=== PATIENT | male | born 1945 | race Caucasian/White ===

== ENCOUNTER 2016-09-29 07:00 | Observation (INO) | payer BC, MEDICARE ==
[~2016-09-29] VITALS: Ht 177.8 cm; Wt 61.7 kg
[2016-09-29] VITALS (7 sets, daily range): BP systolic 113–149; BP diastolic 55–69
--- NOTE | 2016-09-29 07:05 | PHYS DOC ---
Past Medical History Past Medical History: No Pertinent History Past Surgical History: Appendectomy, Tonsillectomy Alcohol Use: Heavy Drug Use: None Adult General Chief Complaint Chief Complaint: HYPERTENSION HPI HPI Patient is a 71 year old male who presents with dizziness and hypertension. He states he checks his blood pressure about once a month since usually in the 140s last time checked was 3 weeks ago. He states in the last 3 days he's been under a lot more stress and his blood pressure this morning is 190s. He states he's been feeling dizzy when he is up trying to walk around. He denies any vertigo, weakness in his arms or legs, nausea vomiting, chest pain, shortness of breath or headache. He does have a history of COPD and uses albuterol inhaler. He does drink 3 beers daily. He continues to smoke. He denies any illicit drug use. He states he's not on any blood pressure medicines as his blood pressures are usually in the 140s systolic. Review of Systems Review of Systems Constitutional: Denies fever or chills [] Eyes: Denies change in visual acuity, redness, or eye pain [] HENT: Denies nasal congestion or sore throat [] Respiratory: Denies cough or shortness of breath [] Cardiovascular: No additional information not addressed in HPI [] GI: Denies abdominal pain, nausea, vomiting, bloody stools or diarrhea [] : Denies dysuria or hematuria [] Musculoskeletal: Denies back pain or joint pain [] Integument: Denies rash or skin lesions [] Neurologic: Denies headache, focal weakness or sensory changes [] Endocrine: Denies polyuria or polydipsia [] Current Medications Current Medications Current Medications Medications (Trade) Dose Ordered Sig/Blanquita Start Time Stop Time Status Last Admin Dose Admin Labetalol HCl (Normodyne) 20 mg PRN Q2HR PRN 09/29/16 08:00 09/29/16 08:09 20 MG Allergies Allergies Allergies Coded Allergies Type Severity Reaction Last Updated Verified Penicillins Allergy Unknown Hives 07/13/13 Yes Physical Exam Physical Exam Constitutional: Well developed, well nourished, no acute distress, non-toxic appearance. [] HENT: Normocephalic, atraumatic, bilateral external ears normal, oropharynx moist, no oral exudates, nose normal. [] Eyes: PERRLA, EOMI, conjunctiva normal, no discharge. [] Neck: Normal range of motion, no tenderness, supple, no stridor. [] Cardiovascular:Heart rate regular rhythm, no murmur [] Lungs & Thorax: Bilateral breath sounds clear to auscultation [] Abdomen: Bowel sounds normal, soft, no tenderness, no masses, no pulsatile masses. [] Skin: Warm, dry, no erythema, no rash. [] Back: No tenderness, no CVA tenderness. [] Extremities: No tenderness, no cyanosis, no clubbing, ROM intact, no edema. [] Neurologic: Alert and oriented X 3, normal motor function, normal sensory function, no focal deficits noted. [] Psychologic: Affect normal, judgement normal, mood normal. [] Current Patient Data Vital Signs Vital Signs Date Time Temp Pulse Resp B/P (MAP) Pulse Ox O2 Delivery O2 Flow Rate FiO2 09/29/16 08:24 68 20 171/90 (117) 96 Room Air 09/29/16 07:21 97.6 97.6 Lab Values Laboratory Tests Test 09/29/16 07:38 09/29/16 07:50 White Blood Count 6.2 x10^3/uL (4.0-11.0) Red Blood Count 4.24 x10^6/uL (4.30-5.70) L Hemoglobin 14.4 g/dL (13.0-17.5) Hematocrit 42.1 % (39.0-53.0) Mean Corpuscular Volume 99 fL (79-100) Mean Corpuscular Hemoglobin 34 pg (25-35) Mean Corpuscular Hemoglobin Concent 34 g/dL (31-37) Red Cell Distribution Width 13.4 % (11.5-14.5) Platelet Count 226 x10^3/uL (140-400) Neutrophils (%) (Auto) 67 % (31-73) Lymphocytes (%) (Auto) 19 % (24-48) L Monocytes (%) (Auto) 11 % (0-9) H Eosinophils (%) (Auto) 2 % (0-3) Basophils (%) (Auto) 1 % (0-3) Neutrophils # (Auto) 4.2 x10^3uL (1.8-7.7) Lymphocytes # (Auto) 1.2 x10^3/uL (1.0-4.8) Monocytes # (Auto) 0.7 x10^3/uL (0.0-1.1) Eosinophils # (Auto) 0.1 x10^3/uL (0.0-0.7) Basophils # (Auto) 0.1 x10^3/uL (0.0-0.2) Prothrombin Time 11.8 SEC (11.7-14.0) Prothrombin Time INR 0.9 (0.8-1.1) Sodium Level 142 mmol/L (136-145) Potassium Level 3.8 mmol/L (3.5-5.1) Chloride Level 104 mmol/L (98-107) Carbon Dioxide Level 30 mmol/L (21-32) Anion Gap 8 (6-14) Blood Urea Nitrogen 18 mg/dL (8-26) Creatinine 0.9 mg/dL (0.7-1.3) Estimated GFR (Cockcroft-Gault) 82.9 Glucose Level 100 mg/dL (70-99) H Calcium Level 8.1 mg/dL (8.5-10.1) L Magnesium Level 2.2 mg/dL (1.8-2.4) Total Bilirubin 1.0 mg/dL (0.2-1.0) Direct Bilirubin 0.3 mg/dL (0.0-0.2) H Aspartate Amino Transferase (AST) 29 U/L (15-37) Alanine Aminotransferase (ALT) 19 U/L (16-63) Alkaline Phosphatase 46 U/L (46-116) Creatine Kinase 148 U/L (39-308) Creatine Kinase MB (Mass) 1.2 ng/mL (0.0-3.6) Creatine Kinase MB Relative Index 0.8 % (0-4) Troponin I Quantitative < 0.017 ng/mL (0.000-0.055) NA-Drh-F-Type Natriuretic Peptide 335 pg/mL (0-124) H Total Protein 6.8 g/dL (6.4-8.2) Albumin 3.7 g/dL (3.4-5.0) Thyroid Stimulating Hormone (TSH) 4.829 uIU/mL (0.358-3.74) H Urine Collection Type Unknown Urine Color Yellow Urine Clarity Clear Urine pH 6.5 Urine Specific [place] 1.020 Urine Protein 100 mg/dL (NEG-TRACE) Urine Glucose (UA) Negative mg/dL (NEG) Urine Ketones (Stick) Trace mg/dL (NEG) Urine Blood Small (NEG) Urine Nitrite Negative (NEG) Urine Bilirubin Negative (NEG) Urine Urobilinogen Dipstick 1.0 mg/dL (0.2 mg/dL) Urine Leukocyte Esterase Negative (NEG) Urine RBC 3-5 /HPF (0-2) Urine WBC 0 /HPF (0-4) Urine Squamous Epithelial Cells Few /LPF Urine Bacteria 0 /HPF (0-FEW) Urine Mucus Mod /LPF Urine Opiates Screen Neg (NEG) Urine Methadone Screen Neg (NEG) Urine Barbiturates Neg (NEG) Urine Phencyclidine Screen Neg (NEG) Urine Amphetamine/Methamphetamine Neg (NEG) Urine Benzodiazepines Screen Neg (NEG) Urine Cocaine Screen Neg (NEG) Urine Cannabinoids Screen Neg (NEG) Urine Ethyl Alcohol Neg (NEG) Laboratory Tests 09/29/16 07:38 Laboratory Tests 09/29/16 07:38 EKG EKG EKG shows sinus rhythm with rate of [address] elevations, T-wave inversions noted in aVL, normal axis, QTC 440 ms, as interpreted by me. Radiology/Procedures Radiology/Procedures [address] [id number] IMAGING REPORT Signed PATIENT: ANDREINA FINE ACCOUNT: [id number] : 1945 LOCATION: ER AGE: 71 SEX: M EXAM STATUS: REG ER ORD. PHYSICIAN: CASSIDY ORTIZ MD REASON: htn PROCEDURE: PORTABLE CHEST 1V Indication hypertension. Dizziness. Protocol study. A single view of the chest was obtained and is compared to an examination 05/14/2013. Chronic background changes compatible with emphysema and/or fibrosis are noted. The heart and pulmonary vessels appear normal. There is no acute parenchymal infiltrate. Significant pleural fluid is not seen. There is no pneumothorax. IMPRESSION: No acute or focal process. No significant change DICTATED and SIGNED BY: WILLIAM VALENCIA MD DATE: 09/29/16 0759 CC: CASSIDY ORTIZ MD; EDGARD PARRY MD ~ [place] [id number] IMAGING REPORT Signed PATIENT: ANDREINA FINE ACCOUNT: [id number] : 1945 LOCATION: ER AGE: 71 SEX: M EXAM STATUS: REG ER ORD. PHYSICIAN: CASSIDY ORTIZ MD REASON: dizziness PROCEDURE: CT HEAD WO CONTRAST Indication dizziness. Hypertension. Noncontrast images of the head were obtained. Note is made of a previous examination 12/27/2012. The calvarium appears unremarkable. The visualized paranasal sinuses appear normal. There is no subdural or epidural hematoma. There is no mass or midline shift. No hemorrhage is seen. No acute finding is apparent. IMPRESSION: No acute finding seen in the head PQRS Compliance Statement: One or more of the following individualized dose reduction techniques were utilized for this examination: 1. Automated exposure control 2. Adjustment of the mA and/or kV according to patient size 3. Use of iterative reconstruction technique DICTATED and SIGNED BY: WILLIAM VALENCIA MD DATE: 09/29/16 0753 CC: CASSIDY ORTIZ MD; EDGARD PARRY MD ~ Impressions: Accelerated hypertension COPD Lung nodule Course & Med Decision Making Course & Med Decision Making Pertinent Labs and Imaging studies reviewed. (See chart for details) He presents with some complaints of dizziness and elevated blood pressure over [address] head, chest x-ray, EKG nonacute. Labs are also nonacute. He received 20 IV labetalol and now his blood pressures in the 170 range. He is being admitted to in stable condition going to med telemetry. He and his 2 sons are agreeable to the plan he is in stable condition at this time with interim orders written. Dragon Disclaimer Dragon Disclaimer This electronic medical record was generated, in whole or in part, using a voice recognition dictation system. Departure Departure Impression: Primary Impression: Hypertensive urgency Disposition: ADMITTED INPATIENT Admitting Physician: Lesia Hair Condition: STABLE Referrals: EDGARD PARRY MD (PCP) CASSIDY ORTIZ MD Sep 29, 2016 07:05
[2016-09-29 07:48] LABS: BASO # 0.1 x10^3/uL (0.0-0.2); BASO % 1 % (0-3); EOS % 2 % (0-3); HEMATOCRIT 42.1 % (39.0-53.0); HEMOGLOBIN 14.4 g/dL (13.0-17.5); LYMPH # 1.2 x10^3/uL (1.0-4.8); LYMPH % 19 % (24-48); MEAN CORPUSCULAR HEMOGLOBIN 34 pg (25-35); MEAN CORPUSCULAR HGB CONC 34 g/dL (31-37); MEAN CORPUSCULAR VOLUME 99 fL (79-100); MONO % 11 % (0-9); NEUT % 67 % (31-73); PLATELET COUNT 226 x10^3/uL (140-400); RED BLOOD COUNT 4.24 x10^6/uL (4.30-5.70); RED CELL DISTRIBUTION WIDTH 13.4 % (11.5-14.5); WHITE BLOOD COUNT 6.2 x10^3/uL (4.0-11.0)
--- NOTE | 2016-09-29 07:48 | EKG ---
[facility] [address] [place] [address] Test Date: 2016-09-29 Test Time: 07:19:01 Pat Name: ANDREINA FINE Department: Room: Gender: M Software Quality Engineer: : 1945 Requested By: CASSIDY ORTIZ Order Number: [id number] Reading MD: Measurements Intervals [place] Rate: 81 P: 90 SC: 158 QRS: 55 QRSD: 88 T: 71 QT: 378 QTc: 440 Interpretive Statements SINUS RHYTHM QRS(T) CONTOUR ABNORMALITY CANNOT RULE OUT ANTEROSEPTAL MYOCARDIAL DAMAGE RI6.01 Unconfirmed report No previous ECG available for comparison
--- NOTE | 2016-09-29 07:59 | RAD ---
Indication dizziness. Hypertension. Noncontrast images of the head were obtained. Note is made of a previous examination 12/27/2012. The calvarium appears unremarkable. The visualized paranasal sinuses appear normal. There is no subdural or epidural hematoma. There is no mass or midline shift. No hemorrhage is seen. No acute finding is apparent. IMPRESSION: No acute finding seen in the head PQRS Compliance Statement: One or more of the following individualized dose reduction techniques were utilized for this examination: 1. Automated exposure control 2. Adjustment of the mA and/or kV according to patient size 3. Use of iterative reconstruction technique
[2016-09-29 08:00] LABS: CALCIUM 8.1 mg/dL (8.5-10.1); CREATININE 0.9 mg/dL (0.7-1.3); GFR 82.9; POTASSIUM 3.8 mmol/L (3.5-5.1)
[2016-09-29] MEDS ORDERED: LABETALOL 20 MG/4 ML DISP.SYRIN. IVP PRN (08:00)
[2016-09-29 08:02] LABS: INR 0.9 (0.8-1.1); PROTHROMBIN TIME PATIENT 11.8 SEC (11.7-14.0)
--- NOTE | 2016-09-29 08:03 | RAD ---
Indication hypertension. Dizziness. Protocol study. A single view of the chest was obtained and is compared to an examination 05/14/2013. Chronic background changes compatible with emphysema and/or fibrosis are noted. The heart and pulmonary vessels appear normal. There is no acute parenchymal infiltrate. Significant pleural fluid is not seen. There is no pneumothorax. IMPRESSION: No acute or focal process. No significant change
[2016-09-29 08:06] LABS: ALBUMIN 3.7 g/dL (3.4-5.0); DIRECT BILIRUBIN 0.3 mg/dL (0.0-0.2); MAGNESIUM 2.2 mg/dL (1.8-2.4); TOTAL PROTEIN 6.8 g/dL (6.4-8.2)
[2016-09-29 08:07] LABS: BILIRUBIN,URINE NEGATIVE (NEG); GLUCOSE,URINE NEGATIVE (NEG); NITRITE,URINE NEGATIVE (NEG); PH,URINE 6.5; PROTEIN,URINE 100 mg/dL (NEG-TRACE)
[2016-09-29 08:11] LABS: CKMB MASS 1.2 ng/mL (0.0-3.6)
[2016-09-29 08:16] LABS: BACTERIA,URINE 0 /HPF (0-FEW); SQUAMOUS EPITHELIAL CELL,UR FEW /LPF; WBC,URINE 0 /HPF (0-4)
[2016-09-29 08:18] LABS: BARBITURATES NEG (NEG); BENZODIAZEPINES NEG (NEG); CANNABINOIDS NEG (NEG); COCAINE NEG (NEG); METHADONE NEG (NEG); OPIATES NEG (NEG); PHENCYCLIDINE NEG (NEG)
[2016-09-29] MEDS ORDERED: ONDANSETRON PF 4 MG/2 ML VIAL. IV PRN ×2 (09:00→14:15)
[2016-09-29] MEDS: NICOTINE 21MG PATCH. TD SCH (12:26)
[2016-09-29] MEDS ORDERED: hydrALAZINE 20 MG/ML VIAL. IVP PRN (14:15)
[2016-09-29] MEDS ORDERED: ALBUTEROL SULFATE 2.5 MG/3 ML NEBU. NEB PRN (14:15)
[2016-09-29] MEDS ORDERED: DOCUSATE SODIUM 100 MG CAPSULE. PO PRN (14:15)
[2016-09-29] MEDS ORDERED: MORPHINE SULFATE 2 MG/ML DISP.SYRIN. IV PRN (14:15)
[2016-09-29] MEDS ORDERED: ACETAMINOPHEN 325 MG TABLET. PO PRN (14:15)
[2016-09-29] MEDS ORDERED: traMADol 50 MG TABLET PO PRN (14:15)
--- NOTE | 2016-09-29 14:20 | PDOC1 ---
History and Physical Date of Admission Date of Admission 09/29/16 Identification/Chief Complaint Chief Complaint syncope, HTN Problems: Source Source: Chart review, Patient History of Present Illness History of Present Illness HPI HPI Patient is a 71 year old male who presents with dizziness and hypertension. Pt was never diagnosed with HTN and not taking any meds for HTN. HE still works as mechanical worker. He came back home yesterday, from hot to cold environment altho he said not staying outside for too long, he got a syncope at home, 1sec, not hit his head or hurt anywhere else. He checked his BP, was 140s. He denies any chest pain, dizzy or sob at that time. Today, he was going to work,felt light headed, sat down, then BP was 211/110 as per . then came to ER. Denies fever, chills, sob, cough. feels good now. ER BP 180s, got labetolol. said he was acting funny, but pt denies, said lots of stress recently. smoker, drinker, no alcohol withdraw history. Past Medical History Pulmonary: COPD Past Surgical History Past Surgical History: Appendectomy, Tonsillectomy Family History Family History: Hypertension Social History Smoke: 1 pack per day ALCOHOL: heavy (6 beers daily) Drugs: None Current Medications Current Medications Current Medications Medications (Trade) Dose Ordered Sig/Blanquita Start Time Stop Time Status Last Admin Dose Admin Labetalol HCl (Normodyne) 20 mg PRN Q2HR PRN 09/29/16 08:00 09/29/16 08:09 20 MG Nicotine (Nicoderm Cq 21mg) 1 patch DAILY 09/29/16 12:08 09/29/16 12:26 1 PATCH Ondansetron HCl (Zofran) 4 mg PRN Q8HRS PRN 09/29/16 09:00 09/30/16 08:59 Allergies Allergies Allergies Coded Allergies Type Severity Reaction Last Updated Verified Penicillins Allergy Unknown Hives 07/13/13 Yes ROS Review of System CONSTITUTIONAL: No fever or chills EYES: No recent changes SKIN: No rash or itching CARDIOVASCULAR: No chest pain, syncope, palpitations, or edema RESPIRATORY: No SOB or cough GASTROINTESTINAL: No nausea, vomiting or abdominal pain NEUROLOGICAL: No headaches or weakness ENDOCRINE: No cold or heat intolerance GENITOURINARY: No urgency or frequency of urination MUSCULOSKELETAL: No back pain or joint pain LYMPHATICS: No enlarged lymph nodes PSYCHIATRIC: No anxiety or depression Physical Exam Physical Exam GEN.: No apparent distress. Alert and oriented. HEENT: Head is normocephalic, atraumatic NECK: Supple. LUNGS: bl severe decreased bs HEART: RRR, S1, S2 present. Peripheral pulses intact ABDOMEN: Soft, nontender. Positive bowel sounds. EXTREMITIES: Without any cyanosis. NEUROLOGIC: Normal speech, normal tone PSYCHIATRIC: Normal affect, normal mood. SKIN: No ulcerations Vitals Vitals Vital Signs Date Time Temp Pulse Resp B/P (MAP) Pulse Ox O2 Delivery O2 Flow Rate FiO2 09/29/16 11:17 Room Air 09/29/16 10:45 97.9 74 18 141/67 (91) 97 97.9 Labs Labs Laboratory Tests Test 09/29/16 07:38 09/29/16 07:50 White Blood Count 6.2 x10^3/uL (4.0-11.0) Red Blood Count 4.24 x10^6/uL (4.30-5.70) Hemoglobin 14.4 g/dL (13.0-17.5) Hematocrit 42.1 % (39.0-53.0) Mean Corpuscular Volume 99 fL (79-100) Mean Corpuscular Hemoglobin 34 pg (25-35) Mean Corpuscular Hemoglobin Concent 34 g/dL (31-37) Red Cell Distribution Width 13.4 % (11.5-14.5) Platelet Count 226 x10^3/uL (140-400) Neutrophils (%) (Auto) 67 % (31-73) Lymphocytes (%) (Auto) 19 % (24-48) Monocytes (%) (Auto) 11 % (0-9) Eosinophils (%) (Auto) 2 % (0-3) Basophils (%) (Auto) 1 % (0-3) Neutrophils # (Auto) 4.2 x10^3uL (1.8-7.7) Lymphocytes # (Auto) 1.2 x10^3/uL (1.0-4.8) Monocytes # (Auto) 0.7 x10^3/uL (0.0-1.1) Eosinophils # (Auto) 0.1 x10^3/uL (0.0-0.7) Basophils # (Auto) 0.1 x10^3/uL (0.0-0.2) Prothrombin Time 11.8 SEC (11.7-14.0) Prothromb Time International Ratio 0.9 (0.8-1.1) Sodium Level 142 mmol/L (136-145) Potassium Level 3.8 mmol/L (3.5-5.1) Chloride Level 104 mmol/L (98-107) Carbon Dioxide Level 30 mmol/L (21-32) Anion Gap 8 (6-14) Blood Urea Nitrogen 18 mg/dL (8-26) Creatinine 0.9 mg/dL (0.7-1.3) Estimated GFR (Cockcroft-Gault) 82.9 Glucose Level 100 mg/dL (70-99) Calcium Level 8.1 mg/dL (8.5-10.1) Magnesium Level 2.2 mg/dL (1.8-2.4) Total Bilirubin 1.0 mg/dL (0.2-1.0) Direct Bilirubin 0.3 mg/dL (0.0-0.2) Aspartate Amino Transf (AST/SGOT) 29 U/L (15-37) Alanine Aminotransferase (ALT/SGPT) 19 U/L (16-63) Alkaline Phosphatase 46 U/L (46-116) Creatine Kinase 148 U/L (39-308) Creatine Kinase MB (Mass) 1.2 ng/mL (0.0-3.6) Creatine Kinase MB Relative Index 0.8 % (0-4) Troponin I Quantitative < 0.017 ng/mL (0.000-0.055) CZ-Uug-X-Type Natriuretic Peptide 335 pg/mL (0-124) Total Protein 6.8 g/dL (6.4-8.2) Albumin 3.7 g/dL (3.4-5.0) Thyroid Stimulating Hormone (TSH) 4.829 uIU/mL (0.358-3.74) Urine Collection Type Unknown Urine Color Yellow Urine Clarity Clear Urine pH 6.5 Urine Specific [place] 1.020 Urine Protein 100 mg/dL (NEG-TRACE) Urine Glucose (UA) Negative mg/dL (NEG) Urine Ketones (Stick) Trace mg/dL (NEG) Urine Blood Small (NEG) Urine Nitrite Negative (NEG) Urine Bilirubin Negative (NEG) Urine Urobilinogen Dipstick 1.0 mg/dL (0.2 mg/dL) Urine Leukocyte Esterase Negative (NEG) Urine RBC 3-5 /HPF (0-2) Urine WBC 0 /HPF (0-4) Urine Squamous Epithelial Cells Few /LPF Urine Bacteria 0 /HPF (0-FEW) Urine Mucus Mod /LPF Urine Opiates Screen Neg (NEG) Urine Methadone Screen Neg (NEG) Urine Barbiturates Neg (NEG) Urine Phencyclidine Screen Neg (NEG) Urine Amphetamine/Methamphetamine Neg (NEG) Urine Benzodiazepines Screen Neg (NEG) Urine Cocaine Screen Neg (NEG) Urine Cannabinoids Screen Neg (NEG) Urine Ethyl Alcohol Neg (NEG) Laboratory Tests Test 09/29/16 07:38 09/29/16 07:50 White Blood Count 6.2 x10^3/uL (4.0-11.0) Red Blood Count 4.24 x10^6/uL (4.30-5.70) Hemoglobin 14.4 g/dL (13.0-17.5) Hematocrit 42.1 % (39.0-53.0) Mean Corpuscular Volume 99 fL (79-100) Mean Corpuscular Hemoglobin 34 pg (25-35) Mean Corpuscular Hemoglobin Concent 34 g/dL (31-37) Red Cell Distribution Width 13.4 % (11.5-14.5) Platelet Count 226 x10^3/uL (140-400) Neutrophils (%) (Auto) 67 % (31-73) Lymphocytes (%) (Auto) 19 % (24-48) Monocytes (%) (Auto) 11 % (0-9) Eosinophils (%) (Auto) 2 % (0-3) Basophils (%) (Auto) 1 % (0-3) Neutrophils # (Auto) 4.2 x10^3uL (1.8-7.7) Lymphocytes # (Auto) 1.2 x10^3/uL (1.0-4.8) Monocytes # (Auto) 0.7 x10^3/uL (0.0-1.1) Eosinophils # (Auto) 0.1 x10^3/uL (0.0-0.7) Basophils # (Auto) 0.1 x10^3/uL (0.0-0.2) Prothrombin Time 11.8 SEC (11.7-14.0) Prothromb Time International Ratio 0.9 (0.8-1.1) Sodium Level 142 mmol/L (136-145) Potassium Level 3.8 mmol/L (3.5-5.1) Chloride Level 104 mmol/L (98-107) Carbon Dioxide Level 30 mmol/L (21-32) Anion Gap 8 (6-14) Blood Urea Nitrogen 18 mg/dL (8-26) Creatinine 0.9 mg/dL (0.7-1.3) Estimated GFR (Cockcroft-Gault) 82.9 Glucose Level 100 mg/dL (70-99) Calcium Level 8.1 mg/dL (8.5-10.1) Magnesium Level 2.2 mg/dL (1.8-2.4) Total Bilirubin 1.0 mg/dL (0.2-1.0) Direct Bilirubin 0.3 mg/dL (0.0-0.2) Aspartate Amino Transf (AST/SGOT) 29 U/L (15-37) Alanine Aminotransferase (ALT/SGPT) 19 U/L (16-63) Alkaline Phosphatase 46 U/L (46-116) Creatine Kinase 148 U/L (39-308) Creatine Kinase MB (Mass) 1.2 ng/mL (0.0-3.6) Creatine Kinase MB Relative Index 0.8 % (0-4) Troponin I Quantitative < 0.017 ng/mL (0.000-0.055) SZ-Plu-U-Type Natriuretic Peptide 335 pg/mL (0-124) Total Protein 6.8 g/dL (6.4-8.2) Albumin 3.7 g/dL (3.4-5.0) Thyroid Stimulating Hormone (TSH) 4.829 uIU/mL (0.358-3.74) Urine Collection Type Unknown Urine Color Yellow Urine Clarity Clear Urine pH 6.5 Urine Specific [place] 1.020 Urine Protein 100 mg/dL (NEG-TRACE) Urine Glucose (UA) Negative mg/dL (NEG) Urine Ketones (Stick) Trace mg/dL (NEG) Urine Blood Small (NEG) Urine Nitrite Negative (NEG) Urine Bilirubin Negative (NEG) Urine Urobilinogen Dipstick 1.0 mg/dL (0.2 mg/dL) Urine Leukocyte Esterase Negative (NEG) Urine RBC 3-5 /HPF (0-2) Urine WBC 0 /HPF (0-4) Urine Squamous Epithelial Cells Few /LPF Urine Bacteria 0 /HPF (0-FEW) Urine Mucus Mod /LPF Urine Opiates Screen Neg (NEG) Urine Methadone Screen Neg (NEG) Urine Barbiturates Neg (NEG) Urine Phencyclidine Screen Neg (NEG) Urine Amphetamine/Methamphetamine Neg (NEG) Urine Benzodiazepines Screen Neg (NEG) Urine Cocaine Screen Neg (NEG) Urine Cannabinoids Screen Neg (NEG) Urine Ethyl Alcohol Neg (NEG) VTE Prophylaxis Ordered VTE Prophylaxis Devices: Yes VTE Pharmacological Prophylaxi: Yes Assessment/Plan Assessment/Plan lightheaded, with HTN urgency syncope, could be vasovagal new HTN copd tobaccoism alcoholism plan: add lisinopril, hydralazine prn dr. [place] consult echo t4 check orthostatic BP ativan prn dvt ppx duoneb, nicotine patch ROWENA SAENZ MD Sep 29, 2016 14:20
[2016-09-29] MEDS: LISINOPRIL 20 MG TABLET PO SCH (15:00)
[2016-09-29] MEDS ORDERED: ENOXAPARIN 40 MG/0.4 ML SYRINGE. SQ SCH (15:00)
[2016-09-29] MEDS ORDERED: IPRATRPIUM/ALBUTEROL 0.5/2.5MG 3 ML NEBU. NEB SCH ×2 (16:00)
--- NOTE | 2016-09-29 17:49 | CARD ---
APPROVED REPORT EXAM: Two-dimensional and M-mode echocardiogram with Doppler and color Doppler. Other Information Quality : Good INDICATION Hypertension/HCVD 2D DIMENSIONS RVDd2.5 (2.9-3.5cm)Left Atrium(2D)3.3 (1.6-4.0cm) IVSd1.1 (0.7-1.1cm)Aortic Root(2D)3.2 (2.0-3.7cm) LVDd3.9 (3.9-5.9cm)LVOT Diameter2.0 (1.8-2.4cm) PWd1.1 (0.7-1.1cm)LVDs2.5 (2.5-4.0cm) FS (%) 30.0 %SV44.5 ml LVEF(%)60.0 (>50%) Aortic Valve AoV Peak Mikey.110.0cm/sAoV VTI23.6cm AO Peak GR.4.8mmHgLVOT Peak Mikey.93.3cm/s AO Mean GR.2mmHgAVA (VMAX)2.59cm2 JASON (VTI)2.80cm2 Mitral Valve MV E Auupyztx987.1cm/sMV DECEL AUBQ304vf MV A Ruymhgnx538.1cm/sE/A Ratio0.8 Tricuspid Valve TR P. Jolsxpjh021fv/sRAP BMPRVZTB2ofZl TR Peak Gr.10lkTfMEVS80nfLi Pulmonary Vein S1 Mxduggrr80.0cm/sD2 Keckbzoc22.0cm/s PVa [id number] LEFT VENTRICLE The left ventricle is normal size. There is normal left ventricular wall thickness. The left ventricu lar systolic function is normal and the ejection fraction is within normal range. The Ejection Fracti on is 60%. There is normal LV segmental wall motion. Transmitral Doppler flow pattern is Grade I-abno rmal relaxation pattern. RIGHT VENTRICLE The right ventricle is normal size. The right ventricular systolic function is normal. ATRIA The left atrium size is normal. The right atrium size is normal. The interatrial septum is intact wit h no evidence for an atrial septal defect or patent foramen ovale as noted on 2-D or Doppler imaging. AORTIC VALVE The aortic valve is calcified but opens well. Doppler and Color Flow revealed no significant aortic r egurgitation. There is no significant aortic valvular stenosis. MITRAL VALVE The mitral valve is calcified but opens well. Mitral annular calcification is mild. There is no evide nce of mitral valve prolapse. There is no mitral valve stenosis. Doppler and Color Flow revealed no m itral valve regurgitation noted. TRICUSPID VALVE The tricuspid valve is normal in structure Doppler and Color Flow revealed physiological tricuspid re gurgitation. There is mild pulmonary hypertension. The PA pressure was estimated at 33 mmHg. There is no tricuspid valve stenosis. PULMONIC VALVE The pulmonary valve is normal in structure and function. Doppler and Color Flow revealed no pulmonic valvular regurgitation. There is no pulmonic valvular stenosis. GREAT VESSELS The aortic root is normal in size. The ascending aorta is normal in size. The IVC is normal in size a nd collapses >50% with inspiration. PERICARDIAL EFFUSION There is no evidence of significant pericardial effusion. Critical Notification Critical Value: No <Conclusion> The left ventricular systolic function is normal and the ejection fraction is within normal range. The Ejection Fraction is 60%. Transmitral Doppler flow pattern is Grade I-abnormal relaxation pattern. The left atrium size is normal. The right atrium size is normal. The aortic valve is calcified but opens well. The mitral valve is calcified but opens well. Mitral annular calcification is mild. Doppler and Color Flow revealed physiological tricuspid regurgitation. There is mild pulmonary hypertension. The PA pressure was estimated at 33 mmHg. The pulmonary valve is normal in structure and function. There is no evidence of significant pericardial effusion.
[2016-09-30 03:00] VITALS: BP 156/85
--- NOTE | 2016-09-30 04:19 | ACF ---
Admission Forms Criteria HYPERTENSION Clinical Indications for Admission to Inpatient Care ( Place "X" for any and all applicable criteria): Admission is indicated for 1 or more of the following(1)(2)(3)(4)(5)(6)(7)(8)(9) (10): [ ]I. Hypertensive emergency, with evidence of acute and progressing target organ disease as indicated by 1 or more of the following: [ ]a) Hypertensive encephalopathy (eg, confusion, altered mental status) [ ]b) Cerebral infarction [ ]c) Intracranial hemorrhage [ ]d) Myocardial ischemia or infarction [ ]e) Heart failure (eg. Pulmonary edema) [ ]f) Aortic dissection [ ]g) Increased creatinine (new) with reduction of more than 50% in estimated glomerular filtration rate from baseline [ ]h) Seizure [ ]i) Papilledema [ ]j) Retinal hemorrhage [ ]k) Microangiopathic hemolytic anemia [ ]l) Other significant finding secondary to hypertension [ ]II. Adrenergic or sympathomimetic crisis (eg, severe hypertension due to pheochromocytoma crisis, cocaine or amphetamine intoxication, or clonidine withdrawal) [X]III. Severe hypertension (SBP greater than 180 mmHg or DBP greater than 110 mmHg or greater than the 95th percentile for age, gender, and height in pediatric patients) that cannot be controlled (eg, to SBP less than 160 mmHg and DBP less than 100 mmHg in adults) by treatment with oral medication in emergency department or observation care Extended stay beyond goal length of stay may be needed for(11)(12)(13): [ ]a) Persistent hypertensive encephalopathy [ ]b) Continuation of pulmonary edema [ ]c) Recurring or persistent severe hypertension [ ]d) Target organ damage (eg, angina, stroke, aortic dissection) The original [employer] content created by [employer] has been revised. The portions of the content which have been revised are identified through the use of italic text, and [email or web address] has neither reviewed nor approved the modified material. All other unmodified content is copyright [employer]. Please see references footnoted in the original [employer] edition 2014 Admission Criteria Met?: Yes BUCK PARKER Sep 30, 2016 04:19
[2016-09-30 05:26] LABS: BASO # 0.1 x10^3/uL (0.0-0.2); BASO % 1 % (0-3); EOS % 3 % (0-3); HEMOGLOBIN 13.4 g/dL (13.0-17.5); LYMPH # 1.3 x10^3/uL (1.0-4.8); LYMPH % 25 % (24-48); MEAN CORPUSCULAR HEMOGLOBIN 35 pg (25-35); MEAN CORPUSCULAR HGB CONC 35 g/dL (31-37); MEAN CORPUSCULAR VOLUME 99 fL (79-100); MONO % 13 % (0-9); NEUT % 59 % (31-73); PLATELET COUNT 213 x10^3/uL (140-400); RED BLOOD COUNT 3.86 x10^6/uL (4.30-5.70); RED CELL DISTRIBUTION WIDTH 13.5 % (11.5-14.5); WHITE BLOOD COUNT 5.5 x10^3/uL (4.0-11.0)
[2016-09-30 05:35] LABS: CREATININE 0.9 mg/dL (0.7-1.3); GFR 82.9
[2016-09-30 07:42] VITALS: BP 151/71
[2016-09-30] MEDS: LISINOPRIL 20 MG TABLET PO SCH (08:11)
[2016-09-30] MEDS: NICOTINE 21MG PATCH. TD SCH (08:11)
[2016-09-30 11:05] VITALS: BP 111/61
[2016-09-30] MEDS ORDERED: TRAM50TA PO (11:49)
[2016-09-30] MEDS ORDERED: LISI-334 PO (11:49)
--- NOTE | 2016-09-30 19:18 | PDOC3 ---
Discharge Summary* Date of Admission: Sep 29, 2016 Date of Discharge: Sep 30, 2016 Admitting Diagnosis AMS HTN urgency Problems: Final Diagnosis AMS HTN urgency Brief Hospital Course Mr. Corona is a 71 y/o male with COPD, EtOH abuse, who presented with dizziness and hypertension. Pt was never diagnosed with HTN and not taking any meds for HTN. He came back home yesterday, from hot to cold environment altho he said not staying outside for too long, he got a syncope at home, 1sec, did not hit his head or hurt anywhere else. He checked his BP, was 140s. He denies any chest pain, dizzy or sob at that time. Today, he was going to work,felt light headed, sat down, then BP was 211/110 as per . then came to ER. Denies fever, chills, sob, cough. feels good now. In the ER, his SBP was in the 180s, for which he received labetalol. He was admitted and ruled out for ACS by serial enzymes. An echo showed normal EF, pAP of 31. with blood pressures much improved and stable, he was discharged to home. Physical Exam VS: 141/67 74 18 GEN.: No apparent distress. Alert and oriented. HEENT: Head is normocephalic, atraumatic NECK: Supple. LUNGS: bl severe decreased bs HEART: RRR, S1, S2 present. Peripheral pulses intact ABDOMEN: Soft, nontender. Positive bowel sounds. EXTREMITIES: Without any cyanosis. NEUROLOGIC: Normal speech, normal tone PSYCHIATRIC: Normal affect, normal mood. SKIN: No ulcerations Disposition/Orders: D/C to Home CONDITION AT DISCHARGE: Improved Diet: Cardiac Scheduled Lisinopril (Lisinopril), 20 MG PO DAILY Scheduled PRN Tramadol Hcl (Tramadol Hcl), 50 MG PO PRN Q6HRS PRN for PAIN FOLLOW UP APPOINTMENT: PCP in 1 week PCP Ashlee Velásquez MD Time Spent Total time spent with patient [] minutes for coordination of care, counseling, and education. PORTIA TOLENTINO MD Sep 30, 2016 19:18
== END 2016-09-30 13:33 | disposition home or self-care (01) ==
LOC: ER 07:00 → INTOOBSV 08:00 → 6 SOUTH 08:00
PROVIDERS: ADMIT Internal Medicine; ATTEND Internal Medicine
DX: R41.82 Altered mental status, unspecified (principal); I16.0 Hypertensive urgency; J44.9 Chronic obstructive pulmonary disease, unspecified; F17.210 Nicotine dependence, cigarettes, uncomplicated; Z90.49 Acquired absence of other specified parts of digestive tract
CPT/HCPCS: 36415; 70450; 71010; 80048; 80076; 81001; 82553; 83735; 83880; 84439; 84443; 84484; 85027; 85610; 93005; 93306; 94250; 94760; 96374; 99285; G0378; G0481; J3490; G0379; A6539

== ENCOUNTER 2018-03-13 16:22 | Emergency (ER) | payer BC ==
[~2018-03-13] VITALS: Ht 177.8 cm; Wt 61.2 kg
[~2018-03-13 16:22] MED LIST: ACET650S PO; ASPI325T11 PO; FLUT1DIS IH; LISI-334 PO; SIMV20TA3 PO; TRAM50TA PO
[2018-03-13] MEDS ORDERED: methylPREDNISolone SOD SUCC PF 125 MG/2 ML VIAL. IV ONE (17:15)
[2018-03-13] MEDS ORDERED: ALBUTEROL SULFATE 2.5 MG/3 ML NEBU. CONT NEB ONE (17:15)
[2018-03-13 17:19] LABS: BASO # 0.1 x10^3/uL (0.0-0.2); BASO % 1 % (0-3); EOS # 0.4 x10^3/uL (0.0-0.7); EOS % 6 % (0-3); HEMATOCRIT 39.1 % (39.0-53.0); HEMOGLOBIN 13.8 g/dL (13.0-17.5); LYMPH # 1.8 x10^3/uL (1.0-4.8); LYMPH % 26 % (24-48); MEAN CORPUSCULAR HEMOGLOBIN 34 pg (25-35); MEAN CORPUSCULAR HGB CONC 35 g/dL (31-37); MEAN CORPUSCULAR VOLUME 97 fL (79-100); MONO # 0.5 x10^3/uL (0.0-1.1); MONO % 7 % (0-9); NEUT # 4.2 x10^3uL (1.8-7.7); NEUT % 60 % (31-73); PLATELET COUNT 256 x10^3/uL (140-400); RED BLOOD COUNT 4.04 x10^6/uL (4.30-5.70); RED CELL DISTRIBUTION WIDTH 13.7 % (11.5-14.5)
--- NOTE | 2018-03-13 17:48 | RAD ---
CHEST PA LATERAL Technique: PA and lateral views of the chest were obtained. Clinical History: COPD, DIZZY, SOB, PRODUCTIVE COUGH X2-3 WEEKS. Comparison: None. Findings: The heart and pulmonary vasculature appear within normal limits. The lungs are clear. The pleural margins are clear. The lungs are hyperinflated. Impression: No acute chest process is seen. Electronically signed by: Toni Oshea III, MD (03/13/2018 5:44 PM) [id number]
[2018-03-13 18:20] LABS: CALCIUM 8.8 mg/dL (8.5-10.1); CREATININE 0.8 mg/dL (0.7-1.3); GFR 94.5; POTASSIUM 4.5 mmol/L (3.5-5.1)
[2018-03-13 18:25] LABS: ALBUMIN 3.8 g/dL (3.4-5.0); TOTAL BILIRUBIN 0.4 mg/dL (0.2-1.0); TOTAL PROTEIN 7.5 g/dL (6.4-8.2)
[2018-03-13] MEDS ORDERED: BENZ100C PO (18:34)
[2018-03-13] MEDS ORDERED: PRED50TA PO (18:34)
[2018-03-13] MEDS ORDERED: AZIT250T PO (18:34)
--- NOTE | 2018-03-13 18:36 | PHYS DOC ---
Past Medical History Past Medical History: COPD Past Surgical History: Appendectomy, Tonsillectomy Alcohol Use: Heavy Drug Use: None Adult General Chief Complaint Chief Complaint: GENERALIZED BODY ACHES HPI HPI Patient is a 73 year old [f__sex] who presents with [] Review of Systems Review of Systems Constitutional: Denies fever or chills [] Eyes: Denies change in visual acuity, redness, or eye pain [] HENT: Denies nasal congestion or sore throat [] Respiratory: Denies cough or shortness of breath [] Cardiovascular: No additional information not addressed in HPI [] GI: Denies abdominal pain, nausea, vomiting, bloody stools or diarrhea [] : Denies dysuria or hematuria [] Musculoskeletal: Denies back pain or joint pain [] Integument: Denies rash or skin lesions [] Neurologic: Denies headache, focal weakness or sensory changes [] Endocrine: Denies polyuria or polydipsia [] All other systems were reviewed and found to be within normal limits, except as documented in this note. Current Medications Current Medications Current Medications Medications (Trade) Dose Ordered Sig/Blanquita Start Time Stop Time Status Last Admin Dose Admin Albuterol Sulfate (Ventolin Neb Soln) 10 mg 1X ONCE 03/13/18 17:15 03/13/18 17:16 DC 03/13/18 17:18 10 MG Methylprednisolone Sodium Succinate (SOLU-Medrol 125MG VIAL) 125 mg 1X ONCE 03/13/18 17:15 03/13/18 17:16 DC 03/13/18 17:52 125 MG Allergies Allergies Allergies Coded Allergies Type Severity Reaction Last Updated Verified Penicillins Allergy Intermediate Hives 09/29/16 Yes Physical Exam Physical Exam Constitutional: Well developed, well nourished, no acute distress, non-toxic appearance. [] HENT: Normocephalic, atraumatic, bilateral external ears normal, oropharynx moist, no oral exudates, nose normal. [] Eyes: PERRLA, EOMI, conjunctiva normal, no discharge. [] Neck: Normal range of motion, no tenderness, supple, no stridor. [] Cardiovascular:Heart rate regular rhythm, no murmur [] Lungs & Thorax: Bilateral breath sounds clear to auscultation [] Abdomen: Bowel sounds normal, soft, no tenderness, no masses, no pulsatile masses. [] Skin: Warm, dry, no erythema, no rash. [] Back: No tenderness, no CVA tenderness. [] Extremities: No tenderness, no cyanosis, no clubbing, ROM intact, no edema. [] Neurologic: Alert and oriented X 3, normal motor function, normal sensory function, no focal deficits noted. [] Psychologic: Affect normal, judgement normal, mood normal. [] Current Patient Data Vital Signs Vital Signs Date Time Temp Pulse Resp B/P (MAP) Pulse Ox O2 Delivery O2 Flow Rate FiO2 03/13/18 17:22 Room Air 03/13/18 16:35 97.7 89 24 133/69 (90) 97 97.7 Lab Values Laboratory Tests Test 03/13/18 17:05 White Blood Count 7.0 x10^3/uL (4.0-11.0) Red Blood Count 4.04 x10^6/uL (4.30-5.70) L Hemoglobin 13.8 g/dL (13.0-17.5) Hematocrit 39.1 % (39.0-53.0) Mean Corpuscular Volume 97 fL (79-100) Mean Corpuscular Hemoglobin 34 pg (25-35) Mean Corpuscular Hemoglobin Concent 35 g/dL (31-37) Red Cell Distribution Width 13.7 % (11.5-14.5) Platelet Count 256 x10^3/uL (140-400) Neutrophils (%) (Auto) 60 % (31-73) Lymphocytes (%) (Auto) 26 % (24-48) Monocytes (%) (Auto) 7 % (0-9) Eosinophils (%) (Auto) 6 % (0-3) H Basophils (%) (Auto) 1 % (0-3) Neutrophils # (Auto) 4.2 x10^3uL (1.8-7.7) Lymphocytes # (Auto) 1.8 x10^3/uL (1.0-4.8) Monocytes # (Auto) 0.5 x10^3/uL (0.0-1.1) Eosinophils # (Auto) 0.4 x10^3/uL (0.0-0.7) Basophils # (Auto) 0.1 x10^3/uL (0.0-0.2) Sodium Level 140 mmol/L (136-145) Potassium Level 4.5 mmol/L (3.5-5.1) Chloride Level 101 mmol/L (98-107) Carbon Dioxide Level 29 mmol/L (21-32) Anion Gap 10 (6-14) Blood Urea Nitrogen 20 mg/dL (8-26) Creatinine 0.8 mg/dL (0.7-1.3) Estimated GFR (Cockcroft-Gault) 94.5 BUN/Creatinine Ratio 25 (6-20) H Glucose Level 91 mg/dL (70-99) Lactic Acid Level 1.3 mmol/L (0.4-2.0) Calcium Level 8.8 mg/dL (8.5-10.1) Total Bilirubin 0.4 mg/dL (0.2-1.0) Aspartate Amino Transferase (AST) 22 U/L (15-37) Alanine Aminotransferase (ALT) 23 U/L (16-63) Alkaline Phosphatase 43 U/L (46-116) L Total Protein 7.5 g/dL (6.4-8.2) Albumin 3.8 g/dL (3.4-5.0) Albumin/Globulin Ratio 1.0 (1.0-1.7) Laboratory Tests 03/13/18 17:05 Laboratory Tests 03/13/18 17:05 EKG EKG [] Radiology/Procedures Radiology/Procedures [] Course & Med Decision Making Course & Med Decision Making Pertinent Labs and Imaging studies reviewed. (See chart for details) [] Dragon Disclaimer Dragon Disclaimer This electronic medical record was generated, in whole or in part, using a voice recognition dictation system. Departure Departure Impression: Primary Impression: COPD (chronic obstructive pulmonary disease) Additional Impression: Bronchitis Disposition: 01 HOME, SELF-CARE Condition: STABLE Referrals: NO PCP (PCP) Patient Instructions: Bronchitis, Chronic Obstructive Pulmonary Disease Exacerbation Additional Instructions: Take the medications as directed. Follow up with your primary care provider in 3 -4 days if not improving or return to the emergency department if worsening. Scripts Benzonatate (TESSALON PERLE) 100 Mg Capsule 1 CAP PO TID for cough, #21 CAP Prov: JAVID CH CLINICAL PHYSICIAN ASSISTANT 03/13/18 Prednisone (PREDNISONE) 50 Mg Tablet 1 TAB PO DAILY for wheezing, #5 TAB Prov: JAVID CH CLINICAL PHYSICIAN ASSISTANT 03/13/18 Azithromycin (ZITHROMAX) 250 Mg Tablet 1 PKG PO UD for bronchitis, #1 PKG Prov: JAVID CH APRN 03/13/18 Problem Qualifiers JAVID CH APRN Mar 13, 2018 18:36
[2018-03-13 18:50] VITALS: BP 141/60
--- NOTE | 2018-03-13 18:52 | EKG ---
[facility] [address] [place] [address] Test Date: 2018-03-13 Test Time: 16:46:03 Pat Name: ANDREINA FINE Department: Room: Gender: Male Access Analyst: : 1945 Requested By: JAVID CH Order Number: [id number] Reading MD: Cal Tiwari Measurements Intervals [place] Rate: 76 P: -129 WV: 100 QRS: 44 QRSD: 80 T: 60 QT: 396 QTc: 450 Interpretive Statements SINUS RHYTHM Electronically Signed On 03-18-2018 15:27:39 BIOLOGICAL SCIENCES INSTRUCTOR by Cal Tiwari
== END 2018-03-13 18:55 | disposition home or self-care (01) ==
LOC: ER 16:22
DX: J40 Bronchitis, not specified as acute or chronic (principal); J44.9 Chronic obstructive pulmonary disease, unspecified; Z88.0 Allergy status to penicillin
CPT/HCPCS: 36415; 71046; 80053; 83605; 85025; 87040; 93005; 94644; 96374; 99285; J2930; J7613

== ENCOUNTER → 2018-12-20 | Outpatient (CLI) | payer BC ==
[~2018-12-20] MED LIST changes: +AZIT250T PO; +BENZ100C PO; +IOHEXOL 240 MG/ML 50ML VIAL. PO ONE; +IOHEXOL 300 MG/ML 100ML VIAL. IV ONE; +PRED50TA PO; +SIMV20TA18 PO; -SIMV20TA3 PO
--- NOTE | 2018-12-20 10:20 | KCIC ---
PQRS Compliance Statement: One or more of the following individualized dose reduction techniques were utilized for this examination: 1. Automated exposure control 2. Adjustment of the mA and/or kV according to patient size 3. Use of iterative reconstruction technique . PQRS Compliance Statement: One or more of the following individualized dose reduction techniques were utilized for this examination: 1. Automated exposure control 2. Adjustment of the mA and/or kV according to patient size 3. Use of iterative reconstruction technique CT CHEST ABDOMEN W/CONTRAST 12/20/2018 12:00 AM INDICATION: COPD, weight loss of 35 pounds in one year COMPARISON: CT chest 09/10/2015 TECHNIQUE: Multiple axial CT images of the chest, abdomen and pelvis were obtained after the intravenous administration of 75 mL Omnipaque 300. Coronal and sagittal reformats are provided. FINDINGS: CHEST: Thyroid gland is normal in appearance. Pretracheal lymph node measures 7 mm by short axis (series 2, image 22). Calcified bilateral hilar lymph nodes are identified which may represent sequela prior granulomatous exposure. Subcarinal lymph node measures 9 mm by short axis (series 2, image 35). Left axillary lymph node measures 9 mm by short axis. No pathologically enlarged thoracic lymph nodes are identified. Heart size is borderline enlarged. Three-vessel coronary artery vascular calcifications are present. Thoracic aorta is normal in course and caliber with dense calcified atheromatous plaque. There is moderate centrilobular pulmonary emphysema. There is an 8 mm mixed solid and groundglass noncalcified pulmonary nodule left lung base (series 2, image 53). Subpleural nodular opacity noted in the posterior left lower lobe (series 2, image 37) measuring 8 mm. This could represent dependent atelectatic changes. There is a solid noncalcified pulmonary nodule in the right lower lobe measuring 8.5 mm, stable dating back to 09/10/2015 and presumed benign. There is bibasilar subsegmental atelectasis, right greater than left. Mild bronchial wall thickening compatible with bronchitis. No pleural effusions, pulmonary vascular congestion or pneumothorax. ABDOMEN: Liver, spleen, bilateral adrenal glands, pancreas and gallbladder are normal in appearance. Abdominal aorta is normal in caliber with dense calcified atheromatous plaque. Dense plaque is noted at the origins of the celiac axis and superior mesenteric artery. Suspect moderate stenosis of the origin the right renal artery at least mild stenosis of the origin of the left renal artery. Oral contrast was administered. Opacified bowel loops demonstrate normal mucosal fold pattern. Small and large bowel are normal in caliber. There is no evidence for bowel obstruction. There are no pericolonic inflammatory changes. A normal, nondilated appendix is visualized without adjacent inflammatory changes. The kidneys enhance symmetrically. There is no suspicious renal mass. There is no hydronephrosis. There are no suspected calculi within the kidneys or proximal ureters. No suspicious osseous normality is identified. IMPRESSION: 1. New 8 mm mixed solid and groundglass opacity at the left lung base may be infectious/inflammatory in etiology. 3 month follow-up chest CT is recommended to assess stability. Additional subpleural 8 mm subpleural nodular opacity in the left lower lobe posteriorly may represent dependent atelectatic changes. 2. Moderate centrilobular pulmonary emphysema with bronchitis compatible COPD changes. 3. Dense calcified atheromatous plaque is identified involving the thoracic and abdominal aorta with suspected varying degrees of stenosis of the mesenteric vasculature. Electronically signed by: Sara Peoples MD (12/20/2018 10:17 AM) [facility]
== END | disposition home or self-care (01) ==
LOC: KCIC CT 08:01
PROVIDERS: ATTEND Family Medicine
DX: J43.9 Emphysema, unspecified (principal); J40 Bronchitis, not specified as acute or chronic; I70.0 Atherosclerosis of aorta; R63.4 Abnormal weight loss
CPT/HCPCS: 71260; 74160; Q9966; Q9967

== ENCOUNTER → 2019-01-17 | Outpatient (CLI) | payer BC ==
[~2019-01-17] MED LIST changes: -IOHEXOL 240 MG/ML 50ML VIAL. PO ONE; -IOHEXOL 300 MG/ML 100ML VIAL. IV ONE
--- NOTE | 2019-01-17 13:04 | KCIC ---
EXAM: Carotid Doppler sonogram. HISTORY: Carotid bruit. TECHNIQUE: Martinez scale and color Doppler sonographic evaluation of the neck with spectral waveform analysis was performed and static images are submitted for review. FINDINGS: There is severe atherosclerotic plaque throughout the common carotid arteries, carotid bulbs and internal and external carotid arteries. The peak systolic velocity within the right common carotid artery is 143 cm/sec. The peak systolic velocity within the right internal carotid artery is 84 cm/sec and the end diastolic velocity within the right internal carotid artery is 26 cm/sec. The right ICA/CCA ratio is 0.58. The peak systolic velocity within the left common carotid artery is 178 cm/sec. The peak systolic velocity within the left internal carotid artery is 160 cm/sec and the end diastolic velocity within the left internal carotid artery is 29 cm/sec. The left ICA/CCA ratio is 0.90. There is normal antegrade flow within both vertebral arteries. IMPRESSION: 1. Elevated peak systolic velocity within the left ICA. Despite a normal ICA to CCA ratio, this suggests 50-69% stenosis. There is no elevated peak systolic velocity within the right ICA to suggest greater than 50% stenosis. 2. Severe atherosclerotic plaque throughout the common carotid arteries, carotid bulbs and internal and external carotid arteries. PQRS Compliance Statement - Stenosis calculations for CT, MR and conventional angiography are based upon measurement of the distal ICA diameter in accordance with the NASCET methodology. Stenosis calculations for carotid ultrasound studies are derived from validated velocity criteria which are known to correlate with the NASCET methodology. Electronically signed by: Emily Patton MD (01/17/2019 1:01 PM) [email or web address]
== END | disposition home or self-care (01) ==
LOC: KCIC US 12:03
PROVIDERS: ATTEND Family Medicine
DX: I65.23 Occlusion and stenosis of bilateral carotid arteries (principal)
CPT/HCPCS: 93880

== ENCOUNTER → 2021-04-08 | Outpatient (CLI) | payer BC ==
[~2021-04-08] MED LIST changes: -LISI-334 PO; +LISI20TA18 PO
--- NOTE | 2021-04-08 12:09 | KCIC ---
EXAM: CHEST 2 VIEWS. HISTORY: Chronic obstructive pulmonary disease exacerbation, shortness of breath. COMPARISON: 03/13/2018. FINDINGS: Frontal and lateral views of the chest are obtained. There are airspace infiltrates in the left greater than right bases. Hyperinflation is consistent wit h chronic obstructive pulmonary disease. There is no pneumothorax or pleural effusion. The heart is n ot enlarged. There are atherosclerotic calcifications of the aorta. A mild superior plate compression deformity in the midthoracic spine is new since the prior study. IMPRESSION: 1. Left greater than right basilar pneumonia superimposed on chronic obstructive pulmonary disease. F ollow-up to resolution is recommended. 2. A mild midthoracic compression deformity appears chronic but is new since 2018. Electronically signed by: Pilo Rivera MD (04/08/2021 12:06 PM) [id number]
== END ==
LOC: KCIC 11:45
PROVIDERS: ATTEND Family Medicine
DX: J18.9 Pneumonia, unspecified organism (principal); I70.0 Atherosclerosis of aorta; J44.1 Chronic obstructive pulmonary disease with (acute) exacerbation; M43.8X4 Other specified deforming dorsopathies, thoracic region
CPT/HCPCS: 71046